=== PATIENT | male | born 1960 | race Caucasian/White ===

== ENCOUNTER 2021-01-25 13:18 | Outpatient (RCR) | payer BC, SELFPAY ==
[2021-01-25] MEDS: COVID-19 VACC, MRNA(PFIZER)/PF 30 MCG/0.3 ML SYRINGE IM (13:36)
[2021-02-15] MEDS: COVID-19 VACC, MRNA(PFIZER)/PF 30 MCG/0.3 ML SYRINGE IM (13:37)
== END 2021-01-25 23:59 ==
LOC: IMMUN 13:18
PROVIDERS: PCP Family Medicine; Visit Provider Family Medicine
DX: Z23 Encounter for immunization (principal)
CPT/HCPCS: 0001A; 0002A; 91300

== ENCOUNTER → 2022-04-18 | Outpatient (CLI) | payer SELFPAY, BC ==
--- NOTE | 2022-04-18 07:58 | CT_ITS ---
STUDY: CT RIGHT LOWER EXTREMITY WITHOUT CONTRAST REASON FOR EXAM: Right knee osteoarthritis, surgical planning. TECHNIQUE: Transaxial CT imaging of the lower extremity was performed. Coronal and sagittal images were reformatted. Individualized dose optimization techniques were used for this CT. COMPARISON: None. FINDINGS: Knee: There are marginal osteophytes, subchondral eburnation and joint space narrowing of the medial femorotibial compartment (coronal reconstruction 27). There are marginal osteophyte of the lateral femoral condyle without joint space narrowing of the lateral femorotibial compartment. There are marginal osteophytes and joint space narrowing of the patellofemoral compartment (sagittal reconstruction 34). Hip: There are marginal osteophytes of the femoral head, subchondral cystic change of the femoral head and acetabulum and joint space narrowing (coronal reconstruction 62). Ankle: There is a small subchondral cyst in the medial talar dome (coronal reconstruction 22). Normal posterior subtalar and talonavicular articulations. There is deformity with osseous fusion of the distal tibia and fibula (coronal reconstructions 31-33). CT/Extremity Lower without Contra IMPRESSION: Right knee osteoarthritis. Electronically Signed: Shane Adams MD at 14:58 EDT ,
== END | disposition home or self-care (01) ==
PROVIDERS: PCP Family Medicine; Referring Provider Specialist; Visit Provider Specialist
DX: M21.161 Varus deformity, not elsewhere classified, right knee (principal)
CPT/HCPCS: 73700

== ENCOUNTER → 2022-04-25 | Outpatient (CLI) | payer BC, SELFPAY ==
--- NOTE | 2022-04-25 09:22 | STRESSREP_ITS ---
Stress Test Report Date: 04-25-2022 Procedure: Pharmacologic stress nuclear imaging study Indications: Dyspnea; chest pain Consent: Per the patient Procedure: The patient underwent pharmacologic (Regadenoson 0.4mg ) evaluation with a peak heart rate of 112 beats per minute (71%predicted maximal heart rate) and a peak blood pressure of 158/90 mmHg. The baseline ECG demonstrated normal sinus rhythm. The peak pharmacologic ECG demonstrated no obvious ECG changes. There were no cardiac dysrhythmias pretest, during pharmacologic infusion, or recovery. There was no complaint of chest discomfort during pharmacologic infusion or recovery. The examination was discontinued secondary to completion of protocol. Impression: 1. Pharmacologic (Regadenoson) evaluation 2. Peak pharmacologic ECG with no obvious ECG changes. 3. There were no cardiac dysrhythmias pretest, during pharmacologic infusion, or recovery. 4. Nuclear images pending Myocardial perfusion imaging study: Technique: The patient was injected with 11.3 millicuries of technetium 99m Cardiolite and subsequently rest SPECT Cardiolite nuclear imaging was obtained in the horizontal long, vertical long, and short axis views. The patient underwent pharmacologic (Regadenoson) evaluation with a peak heart rate of 112 beats per minute (71% percent predicted maximal heart rate) and a peak blood pressure of 158/90 mmHg. The patient was injected with 34.7 millicuries of technetium 99m Cardiolite and subsequently stress SPECT Cardiolite nuclear imaging was obtained in the horizontal long, vertical long, and short axis views. A gated Cardiolite study at peak stress was obtained. Interpretation: Rest and stress SPECT Cardiolite nuclear imaging status post realignment, normalization, and attenuation correction demonstrate all area of subtle diminished tracer uptake near the apical segments without significant change between rest and stress. There is end systolic thickening and brightening. The gated Cardiolite study demonstrates myocardial thickening and inward wall motion. The reported LVEF is 46%. Impression: 1. Rest and stress SPECT her nuclear imaging demonstrate myocardial perfusion change appearing compatible with physiologic apical thinning with no myocardial perfusion changes considered diagnostic for associated stress-induced myocardial ischemia. 2. The gated Cardiolite study reports an LVEF of 46%. Consider further evaluation of overall left ventricular wall motion and systolic function/LVEF with transthoracic echocardiogram if clinically indicated. This note was generated with [employer] software. It may contain incorrect words, spelling, and punctuation that were not noted in checking the note before signing.
== END | disposition home or self-care (01) ==
PROVIDERS: PCP Family Medicine; Referring Provider Family Medicine; Visit Provider Family Medicine
DX: I50.22 Chronic systolic (congestive) heart failure (principal)
CPT/HCPCS: 78452; 93017; A9500; A4216; J2785

== ENCOUNTER → 2023-07-17 | Outpatient (CLI) | payer OTHER, SELFPAY ==
--- NOTE | 2023-07-17 14:26 | ECHOD_ITS ---
Reason For Study: chest pain Procedure This was a 2D Doppler, Color Flow transthoracic echocardiogram. Exam performed in department. Left Ventricle Normal LV size. Left ventricular systolic function is normal. The estimated ejection fraction is 60 %. Normal diastology for age. No regional wall motion abnormalities noted. Right Ventricle Normal RV size. Normal systolic function. Atria The left and right atria are normal. Mitral Valve The mitral valve is structurally normal. No prolapse or stenosis seen. Trivial mitral valve insufficiency. Tricuspid Valve Normal tricuspid valve. Mild (1+) tricuspid valve insufficiency. Right ventricular systolic pressure estimated to be 30 mmHg. Aortic Valve Trisinus/trileaflet aortic valve. Mild focal aortic valve thickening. Mild (1+) aortic valve insufficiency. Pulmonic Valve Normal pulmonic valve. Trivial pulmonic valve insufficiency. Great Vessels Normal aortic root. Pericardium/Pleural No pericardial effusion. MMode/2D Measurements & Calculations LVIDd: 5.4 cm IVSd: 0.88 cm Ao root diam: 3.5 cm LVIDs: 4.0 cm LVPWd: 0.83 cm RVDd: 3.4 cm FS: 25.8 % LAV(MOD-bp): 44.0 ml LVAd ap4: 34.0 cm2 SV(MOD-sp4): 64.7 ml LAV(MOD-bp) Indexed: 22.8 ml/m2 LVLd ap4: 8.1 cm LAV(MOD-sp2): 52.4 ml EDV(MOD-sp4): 115.4 ml LAV(MOD-sp4): 35.9 ml EDV(sp4-el): 121.4 ml LVAs ap4: 20.1 cm2 LVLs ap4: 7.0 cm ESV(MOD-sp4): 50.8 ml ESV(sp4-el): 49.2 ml EF(MOD-sp4): 56.0 % EF(sp4-el): 59.5 % SV(sp4-el): 72.2 ml LA A4 area: 15.2 cm2 LA dimension(2D): 3.5 cm RA A4 area: 13.0 cm2 TAPSE: 1.7 cm Time Measurements MV dec time: 0.21 sec Doppler Measurements & Calculations MV E max jun: 83.6 cm/sec Lat Peak E' Jun: 11.4 cm/sec Med Peak E' Jun: 6.9 cm/sec MV A max jun: 94.1 cm/sec E/E' lat: 7.4 E/E' med: 12.2 MV E/A: 0.89 MV V2 max: 86.8 cm/sec Ao V2 max: 154.9 cm/sec MV max P.0 mmHg MV dec slope: 395.6 cm/sec2 Ao max P.6 mmHg MV V2 mean: 52.9 cm/sec Ao V2 mean: 103.5 cm/sec MV mean P.3 mmHg Ao mean P.0 mmHg MV V2 VTI: 39.6 cm Ao V2 VTI: 34.5 cm AV (velocity ratio): 0.77 AI max jun: 405.8 cm/sec LV V1 max: 126.2 cm/sec PA V2 max: 132.9 cm/sec AI max P.9 mmHg LV V1 max P.4 mmHg PA V2 mean: 84.0 cm/sec LV V1 mean P.3 mmHg AI dec slope: 120.5 cm/sec2 LV V1 mean: 83.7 cm/sec AI P1/2t: 986.6 msec LV V1 VTI: 26.5 cm TR max jun: 257.4 cm/sec TR max P.5 mmHg ECHO/Echo Complete Interpretation Summary The estimated ejection fraction is 60 %. Mild (1+) tricuspid valve insufficiency. Mild (1+) aortic valve insufficiency. Ordering Physician: Carlos Irizarry Referring Physician: Carlos Irizarry Performed By: Daniela Rankin RCS
== END | disposition home or self-care (01) ==
LOC: CVS 14:25
PROVIDERS: PCP Family Medicine; Referring Provider Internal Medicine Cardiovascular Disease; Visit Provider Internal Medicine Cardiovascular Disease
DX: I11.0 Hypertensive heart disease with heart failure (principal); I50.42 Chronic combined systolic (congestive) and diastolic (congestive) heart failure; R07.9 Chest pain, unspecified
CPT/HCPCS: 93306

== ENCOUNTER → 2023-09-11 | Outpatient (CLI) | payer OTHER, SELFPAY ==
--- NOTE | 2023-09-11 12:51 | CT_ITS ---
STUDY: CT CHEST WITH CONTRAST REASON FOR EXAM: Male, 63 years old. CP, CHRONIC HFrEF, LIMITED OVER READ ONLY RADIATION DOSAGE (If Supplied By Facility): CTDIvol = ( 34.59 ) mGy, DLP = ( 1223.28 ) mGycm TECHNIQUE: Transaxial imaging was performed following intravenous administration of IV 55mL Isovue-370. Individualized dose optimization techniques were used for this CT. COMPARISON: No relevant priors. FINDINGS: CHEST The lungs are normal. There is no demonstrated pleural abnormality. No coronary artery calcification is seen. Small benign-appearing mediastinal lymph nodes. Normal hilar regions. Normal unenhanced pulmonary arteries. Normal aorta arch and descending thoracic aorta. Normal osseous structures. Fatty infiltration of the liver. Small cysts are seen in both lobes of the liver. CT/Limited Chest CT Cardiac Only IMPRESSION: No coronary artery calcification is seen. Fatty infiltration of the liver. Multiple hepatic cysts. Electronically Signed: Ryne Uirbe MD at 8:55 EST ,
[2023-09-11 13:22] VITALS: BP 149/95; PULSE 81; RESP 16; TEMP 36.3; O2SAT 94; BMI 29.7
[2023-09-11 13:32] VITALS: BP 140/87; PULSE 85
[2023-09-11] MEDS: Metoprolol Tartrate 5 MG/5 ML Vial IV (13:32)
[2023-09-11 13:39] VITALS: BP 131/89; PULSE 63; RESP 15; O2SAT 95
[2023-09-11 13:56] VITALS: BP 131/89; PULSE 63
[2023-09-11] MEDS: Nitroglycerin SL (ED/IMG/CATH) 0.4 MG TABLET SL (13:56)
[2023-09-11 14:00] VITALS: BP 145/88; PULSE 83; RESP 16; O2SAT 92
[2023-09-11 14:11] LABS: CREATININE FINGERSTICK 1.4 mg/dL (0.70-1.30)
--- NOTE | 2023-09-28 16:32 | CCTA.WCONT ---
CCTA w/Cont Coronary Arteries Date of Study:: 09/11/23 Chest pain Coronary Calcium Scoring: High-resolution Computed Tomographic imaging of the chest was performed on [09/11/2023], with particular attention paid to the coronary arteries. Intravenous contrast agent was administered per protocol and images reconstructed and displayed. LEFT MAIN CORONARY ARTERY: Arises from the left coronary cusp and appears to be normal [] LEFT ANTERIOR DESCENDING CORONARY ARTERY: Branches of the left main coronary artery with no significant atherosclerotic plaquing noted. [] LEFT CIRCUMFLEX CORONARY ARTERY: Branches of the left main coronary artery nondominant with no significant atherosclerotic plaquing present [] RIGHT CORONARY ARTERY: Large dominant vessel arising from the right coronary cusp with no significant atherosclerotic plaquing noted. CORONARY CALCIUM SCORE: [] Not performed Conclusion: Coronary CT angiogram with no significant atherosclerotic plaquing or stenosis present.
== END | disposition home or self-care (01) ==
PROVIDERS: PCP Family Medicine; Referring Provider Internal Medicine Cardiovascular Disease; Visit Provider Internal Medicine Cardiovascular Disease
DX: R07.9 Chest pain, unspecified (principal); I50.42 Chronic combined systolic (congestive) and diastolic (congestive) heart failure; I11.0 Hypertensive heart disease with heart failure
CPT/HCPCS: 75574; 76380; 96374; Q9967

== ENCOUNTER → 2025-03-07 | Outpatient (CLI) | payer OTHER, SELFPAY ==
--- NOTE | 2025-03-07 07:40 | ECHOD_ITS ---
Reason For Study Reason For Study: CHF Procedure This was a 2D Doppler, Color Flow transthoracic echocardiogram. Exam performed in department. Left Ventricle Normal size and thickness. The global longitudinal strain = -17.0 % (normal). The LV systolic function is normal. EF is 60 %. Normal diastology for age. Right Ventricle Normal right ventricle. Atria The left and right atria are normal. Mitral Valve Mild (1+) mitral valve insufficiency. Tricuspid Valve Mild tricuspid valve insufficiency. Normal pulmonary artery pressure. Aortic Valve Trisinus/trileaflet aortic valve. Mild (1+) aortic valve insufficiency. Pulmonic Valve Mild (1+) pulmonic valve insufficiency. Great Vessels Mildly dilated aortic root. Pericardium/Pleural No pericardial effusion. MMode/2D Measurements & Calculations LVIDd: 4.7 cm IVSd: 0.91 cm Ao root diam: 3.8 cm LVIDs: 3.5 cm LVPWd: 0.80 cm RVDd: 4.0 cm FS: 25.6 % LAV(MOD-bp): 35.6 ml LVAd ap4: 29.3 cm2 SV(MOD-sp4): 44.2 ml LAV(MOD-bp) Indexed: 17.5 ml/m2 LVLd ap4: 8.1 cm SI(MOD-sp4): 21.8 ml/m2 LAV(MOD-sp2): 38.6 ml EDV(MOD-sp4): 86.8 ml LAV(MOD-sp4): 29.3 ml EDV(sp4-el): 89.9 ml LVAs ap4: 18.9 cm2 LVLs ap4: 7.3 cm ESV(MOD-sp4): 42.6 ml ESV(sp4-el): 41.9 ml EF(MOD-sp4): 50.9 % EF(sp4-el): 53.4 % SV(sp4-el): 48.0 ml LA A4 area: 12.3 cm2 LA dimension(2D): 4.2 cm RA A4 area: 9.9 cm2 TAPSE: 1.5 cm Time Measurements MV dec time: 0.22 sec Doppler Measurements & Calculations MV E max jun: 69.3 cm/sec Lat Peak E' Jun: 9.6 cm/sec Med Peak E' Jun: 6.6 cm/sec MV A max jun: 82.3 cm/sec E/E' lat: 7.2 E/E' med: 10.6 MV E/A: 0.84 MV V2 max: 93.2 cm/sec MV P1/2t max jun: 79.4 cm/sec Ao V2 max: 111.1 cm/sec MV max P.5 mmHg MV P1/2t: 86.5 msec Ao max P.9 mmHg MV V2 mean: 49.5 cm/sec Ao V2 mean: 81.1 cm/sec MV mean P.1 mmHg MV dec slope: 268.7 cm/sec2 Ao mean P.0 mmHg MV V2 VTI: 33.9 cm MVA(P1/2t): 2.5 cm2 Ao V2 VTI: 25.6 cm AV (velocity ratio): 0.90 AI max jun: 466.3 cm/sec LV V1 max: 98.7 cm/sec PA V2 max: 106.8 cm/sec AI max P.2 mmHg LV V1 max P.9 mmHg LV V1 mean P.1 mmHg AI dec slope: 207.2 cm/sec2 LV V1 mean: 67.0 cm/sec AI P1/2t: 659.0 msec LV V1 VTI: 23.0 cm TR max jun: 236.1 cm/sec TR max P.3 mmHg ECHO/Echo Complete Interpretation Summary The LV systolic function is normal. EF is 60 %. Normal diastology for age. Mild (1+) mitral valve insufficiency. Mild tricuspid valve insufficiency. Mild (1+) aortic valve insufficiency. Mild (1+) pulmonic valve insufficiency. Mildly dilated aortic root. Ordering Physician: Carlos Irizarry Referring Physician: Carlos Irizarry Performed By: Bert Rutledge RCS
[2025-03-07 10:45] LABS: ALB/GLOB Ratio 1.5 RATIO (0.9-2.4); AST(SGOT) 20 U/L (<=37); Alanine Aminotransfer ALT/SGPT 20 U/L (<=46); Albumin, Serum 4.2 g/dL (3.4-4.8); Alkaline Phosphatase 87 U/L (40-129); Anion Gap 9 (5-15); BUN 31 mg/dL (4-19); BUN/Creat Ratio 19.8 RATIO (10-20); Calcium,Total 9.5 mg/dL (7.6-11.0); Carbon Dioxide 23.5 mmol/L (21.0-32.0); Chloride 106 mmol/L (98-108); Cholesterol 153 mg/dL (<=200); Creatinine, Serum 1.55 mg/dL (0.70-1.20); EST Glomerular Filtration Rate 49 (>60); Globulin 2.9 g/dL (2.2-4.2); Glucose 104 mg/dL (70-99); High Density Lipoprotein 46 mg/dL; Low Density Lipoprotein Calc. 94 mg/dL; Potassium 5.3 mmol/L (3.3-5.1); Sodium Level 138 mmol/L (133-145); Triglycerides 64 mg/dL; Very Low Density Lipoprotein 13 mg/dL (5-40); cholesterol:hdl ratio screen 3.32
== END | disposition home or self-care (01) ==
PROVIDERS: PCP Family Medicine; Referring Provider Internal Medicine Cardiovascular Disease; Visit Provider Internal Medicine Cardiovascular Disease
DX: R07.9 Chest pain, unspecified (principal)
CPT/HCPCS: 36415; 80053; 80061; 93306